=== PATIENT | male | born 1940 | race Caucasian/White ===

== ENCOUNTER 2017-10-25 10:35 | Outpatient (CLI) | payer OTHER, SELFPAY ==
--- NOTE | 2017-10-25 | DI.RAD.S_ITS ---
PROCEDURE: PAIN L/S FACET INJ/BLK 1ST [facility] COMPARISON: None. INDICATIONS: LUMBOSACRAL RADICULOPATHY FINDINGS: Bilateral L3-4 and L4-5 needle tip localization has been achieved, for medial branch block IMPRESSION: Successful bilateral L3-4 and L4-5 needle tip localization for bilateral branch block procedure. Dictated by: Marcel Crawford M.D. on 10/25/2017 at 13:36 Approved by: Marcel Crawford M.D. on 10/25/2017 at 13:47
[2017-10-25 11:00] VITALS: BP 156/112; PULSE 94; RESP 20; TEMP 36; O2SAT 97
[2017-10-25 11:24] VITALS: BP 144/99; PULSE 97; RESP 18; O2SAT 97
[2017-10-25] MEDS: MIDAZOLAM 5 MG/5 ML VIAL IV (11:25)
[2017-10-25 11:27] VITALS: BP 138/91; PULSE 97; RESP 18; O2SAT 97
[2017-10-25 11:30] VITALS: BP 139/93; PULSE 94; RESP 17; O2SAT 98
[2017-10-25 11:40] VITALS: BP 147/88; PULSE 99; RESP 18; O2SAT 99
--- NOTE | 2017-10-25 11:41 | P.PCN_ITS ---
Procedures Date/Time Date of procedure: 10/25/17 Time of procedure: 11:38 General Procedure description: POST OP DIAGNOSIS 1. FACET ARTHROPATHY PROCEDURES 1. BILATERAL L4 AND L5 MB BLOCKS PHYSICIAN: DO TOMAS Neri Abhishek is referred by for treatment of Bilateral Axial LBP. DESCRIPTION OF PROCEDURE Fluoroscopically guided, contrast-controlled bilateral L4 AND L5 medial branch blocks with 0.5cc of 0.5% Marcaine. Following denial of allergy and review of potential side effects and complications, including, but not necessarily limited to, infection, allergic reaction, local tissue breakdown, nerve injury, paralysis, stroke and possible , the patient indicated that the patient understood and agreed to proceed. An informed consent document was signed by the patient, witnessed by a nurse, and placed in the patient's chart. After review of previous anaesthesic history and IV conscious sedation the patient was deemed safe to proceed with todays procedure with IV conscious sedation as ASA class II designation. Safety time-out was performed to confirm patient ID, procedure to be performed and site of procedure. IV sedation was accomplished with a combination of 3mg of Versed was administered by the RN after DO order, titrated to patient comfort during the course of the procedure while the patient remained responsive to all verbal commands In the prone position, following sterile prep and drape of the lumbar region, the right L4 AND L5 anatomical location of the medial branch of the dorsal ramus was identified fluoroscopically. Subsequently an anesthetic skin wheal using 1% lidocaine solution was initiated at each of the anatomical spots. Subsequently then a 22-gauge 3.5-inch spinal needle was atraumatically introduced and advanced under fluoroscopic guidance at each of the corresponding sites at the right L4 AND L5 MB. After negative aspiration, 0.2 cc of Isovue 200 was injected, confirming placement without vascular or intrathecal uptake. Subsequently then 0.5 cc of 0.5% Marcaine solution was injected at each of the corresponding sites at the Right L4 AND L5 medial branch locations. The identical procedure was replicated on the left. The patient tolerated the procedure well without signs or symptoms of complications. Post-procedure, the patient was monitored initiating provocative activities to measure the amount of relief from block of the facetogenic pain. The patient reported a VAS of 7 prior to the procedure and a post-procedure VAS of 1. It has been a pleasure to assist in the diagnostic and therapeutic care of your patient. Total Fluoroscopy Time: 24.8 seconds Total Conscious Sedation Time: 24min POST OP INSTRUCTIONS The patient was provided with a Pain Log to complete over the next several hours and subsequent days prior to the patient's follow up with the ordering physician. If the patient has hand mexican food maker relief to the solution applied, then they may be a candidate for medial branch rhizotomy. The patient is aware , was provided, once again, with a Pain Log and will follow up with the referring physician for review and clinical correlation Ochoa Trejo DO Complications: none
[2017-10-25 11:45] VITALS: BP 147/88; PULSE 92; RESP 18; O2SAT 99
[2017-10-25] MEDS: LIDOCAINE 1% 20 ML INJ 10 ML INJ (11:46)
[2017-10-25] MEDS: IOPAMIDOL 15 ML VIAL 3 ML INJ (11:46)
[2017-10-25] MEDS: BUPIVACAINE 0.5% (PF) VIAL 5 ML INJ (11:46)
[2017-10-25] MEDS: BETAMETHASONE 30 MG/5 ML MDV 12 MG INJ (11:57)
== END 2017-10-25 12:05 ==
PROVIDERS: PCP Family Medicine; Visit Provider Physical Medicine & Rehabilitation
DX: M47.816 Spondylosis without myelopathy or radiculopathy, lumbar region (principal); Z98.1 Arthrodesis status
CPT/HCPCS: 64493; 99152; J0702; J2250

== ENCOUNTER 2018-02-28 10:10 | Outpatient (CLI) | payer OTHER, SELFPAY ==
[2018-02-28] VITALS (14 sets, daily range): BP systolic 132–175; BP diastolic 80–106; PULSE 71–83; RESP 16–20; TEMP 35.8; O2SAT 97–100
--- NOTE | 2018-02-28 10:15 | DI.RAD.S_ITS ---
PROCEDURE: PAIN L/S MED/LAT N RFA BILAT INDICATIONS: SPONDYLOSIS FINDINGS: Fluoroscopic spot filming was performed to verify placement of spinal needles at the L4 and L5 level(s), as labeled on the films. Appropriate location(s) of the needle tip(s) was confirmed by injection of iodinated contrast. Dictated by: Bhaskar Amaya M.D. on 02/28/2018 at 13:25 Approved by: Bhaskar Amaya M.D. on 02/28/2018 at 13:25
[2018-02-28] MEDS: MIDAZOLAM 5 MG/5 ML VIAL IV (11:03)
[2018-02-28] MEDS: LIDOCAINE 1% 20 ML INJ INJ (11:16)
[2018-02-28] MEDS: BUPIVACAINE 0.5% (PF) VIAL 5 ML INJ (11:21)
--- NOTE | 2018-02-28 11:50 | PC.NURSE ---
ASSISTING PT FROM TABLE AND TRANSPORTING TO POST PROC AREA IN STABLE CONDITION
--- NOTE | 2018-02-28 11:56 | P.PCN_ITS ---
Procedures Date/Time Date of procedure: 02/28/18 Time of procedure: 11:55 General Procedure description: PREOP DIAGNOSIS 1. RECALCITRANT FACET ARTHROPATHY, POST OP DIAGNOSIS 1. RECALCITRANT FACET ARTHROPATHY PROCEDURES 1. BILATERAL L4 AND L5 MEDIAL BRANCH RADIOFREQUENCY NEUROTOMY PHYSICIAN: Ochoa Trejo DO INDICATIONS: Abhishek is referred by Dr. Mccartney for treatment of facet arthropathy. DESCRIPTION OF PROCEDURE Bilateral L3, L4 and L5 medial branch radiofrequency neurotomy The patient is well known to this clinic having undergone previous facet injections with good but temporary relief. The patient has experienced appropriate, concordant relief with previous facet and median branch blocks but the patient's pain has been recalcitrant to further conservative measures. Therefore, based upon the patient's relief and persistent symptoms, the patient is considered an appropriate candidate for facet rhizotomy. All of the patient' s questions regarding the risks versus benefits of the procedure, including, but not limited to, bleeding, infection, temporary as well as lasting nerve injury, paralysis, stroke, and , as well treatment alternatives were answered to satisfaction. After obtaining informed consent, denial of pertinent drug allergies, as well as being made aware of the potential risks of bleeding, infection, spinal cord trauma, paralysis, temporary and permanent nerve damage, seizure, stroke, and possible , the patient was brought to the fluoroscopy suite and positioned prone on the fluoroscopy table. The lumbar region was prepped with Betadine and covered with a fenestrated drape in the usual sterile fashion. Appropriate monitors applied including pulse oximeter, pulse, and blood pressure for regular monitoring throughout the procedure. After review of previous anaesthesic history and IV conscious sedation the patient was deemed safe to proceed with todays procedure with IV conscious sedation as ASA class II designation. Safety time-out was performed to confirm patient ID, procedure to be performed and site of procedure. IV sedation was accomplished with a combination of 5mg of Versed administered by the RN after DO order, titrated to patient comfort during the course of the procedure while the patient remained responsive to all verbal commands. After local infiltration using 1% lidocaine, under fluoroscopic guidance, a 10- cm RF insulated needle with a 10-mm active tip was positioned parallel to the junction of the right the superior articulating process where the L5 medial branch resides. Needle placement was confirmed with sensory stimulation at 50 Hz, with motor stimulation of .5v on the right which produced local stimulation without radicular component. The stimulation was then increased to 1.5v with, once again, only local multifidus stimulation without radicular component. This was then followed by two discreet lesions performed at 80 degrees Celsius for 90 seconds each. The needle was then removed and the identical procedure was performed along the length of the right L4 medial branch with motor stimulation at .7v on the right. The identical procedures were repeated on the left. The patient tolerated the procedure well without signs or symptoms of complications prior to transfer to the recovery area continued monitoring without incident. The patient was then transferred to the recovery area where they were observed for an appropriate period of time after the injection. The patient reported a VAS score of 7 prior to the procedure and a post-procedure VAS of 1. Total Fluoroscopy Time: 22.7 seconds Total Conscious Sedation Time: 34min POST OP INSTRUCTIONS The patient was provided a Pain Log to continue to record the patient's response to the target-specific procedure prior to the patient's follow-up visit with the referring physician. Additionally, specific post-injection care instructions and a contact number to our office were provided if concerns arise regarding possible complications associated with the procedure are suspected. Ochoa Trejo, Complications: none
== END 2018-02-28 12:12 ==
LOC: RAD 10:11
PROVIDERS: PCP Family Medicine; Visit Provider Physical Medicine & Rehabilitation
DX: M47.817 Spondylosis without myelopathy or radiculopathy, lumbosacral region (principal); Z98.1 Arthrodesis status; M46.96 Unspecified inflammatory spondylopathy, lumbar region
CPT/HCPCS: 64635; 99152; J2250; J3010

== ENCOUNTER 2018-09-04 14:31 | Outpatient (CLI) | payer OTHER, SELFPAY ==
[2018-09-04] VITALS (7 sets, daily range): BP systolic 139–169; BP diastolic 82–103; PULSE 67–87; RESP 16–18; TEMP 36.1; O2SAT 95–97
--- NOTE | 2018-09-04 14:33 | DI.RAD.S_ITS ---
PROCEDURE: PAIN SI JOINT INJECTION INDICATIONS: SPONDYLOSIS FINDINGS: Fluoroscopic spot filming was performed to verify placement of spinal needles at the level(s), as labeled on the films. Appropriate location(s) of the needle tip(s) was confirmed by injection of iodinated contrast. IMPRESSION: Fluoroscopy for pain management. Dictated by: Raimundo Esquivel M.D. on 09/04/2018 at 17:05 Approved by: Raimundo Esquivel M.D. on 09/04/2018 at 17:05
[2018-09-04] MEDS: fentaNYL 100 MCG/2 ML INJ 50 MCG IV (15:27)
[2018-09-04] MEDS: MIDAZOLAM 5 MG/5 ML VIAL IV (15:27)
[2018-09-04] MEDS: BETAMETHASONE 30 MG/5 ML MDV 12 MG INJ (15:31)
[2018-09-04] MEDS: IOPAMIDOL 15 ML VIAL 3 ML INJ (15:31)
[2018-09-04] MEDS: BUPIVACAINE 0.5% (PF) VIAL 2 ML INJ (15:31)
--- NOTE | 2018-09-04 15:34 | PC.NURSE ---
ASSISTING PT OFF TABLE AND TRANSPORTING TO POST PROC AREA IN STABLE CONDITION
--- NOTE | 2018-09-04 15:42 | P.PCN_ITS ---
Procedures Date/Time Date of procedure: 09/04/18 Time of procedure: 15:41 General Procedure description: PREOP Dx: Sacroiliac joint pain/DJD POST OP DX: Sacroiliac Joint Pain/DJD Procedures: Fluoroscopic guided contrast controlled right sacroiliac joint injection Physician: Ochoa Trejo D.O. Indications: Abhishek is referred by for treatment of right sacroiliac joint DJD Description of procedure Fluoroscopic guided, contrast controlled right sacroiliac joint injection Following review of allergies and review of potential side effects and complications, including, but not necessarily limited to, infection, allergic r eaction, local tissue breakdown, temporary as well as permanent nerve injury, paralysis, stroke and possible , the patient indicated that they understood and agreed to proceed. An informed consent was signed by the patient, witnessed by a nurse, and placed in the patient's chart. Additionally, other treatment options including modalities, medications, and physical therapy were reviewed with the patient. After review of previous anaesthesic history and IV conscious sedation the patient was deemed safe to proceed with todays procedure with IV conscious sedation as ASA class II designation. Safety time-out was performed to confirm patient ID, procedure to be performed and site of procedure. IV sedation was accomplished with a combination of 2mg Versed and 50mcg of Fentanyl was adminis tered by the RN after DO order, titrated to patient comfort during the course of the procedure while the patient remained responsive to all verbal commands In the prone position following sterile prep and drape of the pelvic region, the hyper lucency on in the inferior aspect of the sacroiliac joint was identified fluoroscopically the skin was anesthetized be a 25 gauge 1 eventual with approximately 2 cc of 1% lidocaine solution. At this point, a 22 gauge 3 in spinal needle was atraumatically introduced and advanced under fluoroscopic guidance into the inferior aspect of the right sacroiliac joint. Following negative aspiration, approximately 0.3 cc of Isovue-300 was injected confirming intra-articular placement without vascular uptake. Radiographic data, including multiple fluoroscopic views of the pelvis, reveals a spinal needle in the sacroiliac joint hyper lucent zone. Subsequent view show flow contrast tear superiorly and inferiorly within the joint capsule without vascular intrathecal uptake. At this point a total of 1 cc or 0 8 of 0.5% Marcaine was combined with 1 cc of 6 mg of betamethasone was injected without incident. The procedure tolerated the procedure well without signs or symptoms of complications prior to transfer to the recovery area continued monitoring without incident. The patient was then transferred to the recovery area with a bur observed for an appropriate time after the injection. The patient reverted a vas score of 7 prior to the procedure and postprocedure vas of 1. Total fluoroscopy time: 22.7 sec Total conscious sedation time: 24 min Postop instructions The patient was provided with a pain like to continue to record the patient's response to the target specific procedure prior to the patient's follow-up visit with the referring physician. Additionally, specific post injection care instructions and a contact number to our office were provided if concerns arise regarding the possible complications associated with procedure are suspected. Ochoa Trejo D.O. Complications: none
--- NOTE | 2018-09-04 15:44 | PC.NURSE ---
Pt returned from post procedure awake and alert, able to move from W/C to chair on own power. Resumed monitoring from Mikala GUILLORY.
== END 2018-09-04 16:09 ==
PROVIDERS: PCP Family Medicine; Visit Provider Physical Medicine & Rehabilitation
DX: M53.3 Sacrococcygeal disorders, not elsewhere classified (principal); M47.818 Spondylosis without myelopathy or radiculopathy, sacral and sacrococcygeal region
CPT/HCPCS: 27096; 99152; J0702; J2250; J3010

== ENCOUNTER → 2019-10-07 09:21 | Outpatient (CLI) | payer OTHER, SELFPAY ==
[2019-10-08 09:37] LABS: COVID19 Sendout Not Detected (Not Detect)
== END ==
PROVIDERS: PCP Family Medicine; Visit Provider Student in an Organized Health Care Education/Training Program
DX: Z01.812 Encounter for preprocedural laboratory examination (principal)
CPT/HCPCS: 87635

== ENCOUNTER 2019-10-10 09:41 | Outpatient (CLI) | payer OTHER, SELFPAY ==
[2019-10-10] VITALS (9 sets, daily range): BP systolic 120–166; BP diastolic 79–129; PULSE 56–72; RESP 14–16; TEMP 36; O2SAT 96–99
--- NOTE | 2019-10-10 09:44 | DI.RAD.S_ITS ---
PROCEDURE: PAIN SI JOINT INJECTION [facility] COMPARISON: None. INDICATIONS: SACROCOCCYGEAL DISORDER FINDINGS: There is a needle tip localized into the inferior 3rd of the right sacroiliac joint, for SI joint steroid injection. IMPRESSION: Successful right inferior sacroiliac joint needle tip localization for steroid injection into this region. Dictated by: Marcel Crawford M.D. on 10/10/2019 at 13:54 Approved by: Marcel Crawford M.D. on 10/10/2019 at 13:54
[2019-10-10] MEDS: MIDAZOLAM 5 MG/5 ML VIAL IV (10:27)
[2019-10-10] MEDS: fentaNYL 100 MCG/2 ML INJ 50 MCG IV (10:27)
[2019-10-10] MEDS: BUPIVACAINE 0.5% (PF) VIAL 2 ML INJ (10:32)
[2019-10-10] MEDS: IOPAMIDOL 15 ML VIAL 3 ML INJ (10:32)
[2019-10-10] MEDS: BETAMETHASONE 30 MG/5 ML MDV 12 MG INJ (10:33)
--- NOTE | 2019-10-10 10:51 | PM.PROC.IR.1 ---
Date/Time/Diagnoses Date of procedure: 10/10/19 Time of procedure: 10:52 Pre-procedure diagnosis: Sacroiliac joint pain/DJD Post-procedure diagnosis: same Procedure Notes Procedure: Fluoroscopic guided contrast controlled bilateral sacroiliac joint injection Indications: Abhishek is referred by for treatment of bilateral sacroiliac joint DJD Physician: Ochoa Trejo Total Fluoroscopy time (seconds): 8 Total sedation minutes: 24 Complications: none Procedure in detail & Post-procedure care: Description of procedure Fluoroscopic guided, contrast controlled bilateral sacroiliac joint injection Following review of allergies and review of potential side effects and complications, including, but not necessarily limited to, infection, allergic reaction, local tissue breakdown, temporary as well as permanent nerve injury, paralysis, stroke and possible , the patient indicated that they understood and agreed to proceed. An informed consent was signed by the patient, witnessed by a nurse, and placed in the patient's chart. Additionally, other treatment options including modalities, medications, and physical therapy were reviewed with the patient. After review of previous anaesthesic history and IV conscious sedation the patient was deemed safe to proceed with today?s procedure with IV conscious sedation as ASA class II designation. Safety time-out was performed to confirm patient ID, procedure to be performed and site of procedure. IV sedation was accomplished with a combination of 2mg Versed and 50mcg of Fentanyl were administered by the RN after DO order, titrated to patient comfort during the course of the procedure while the patient remained responsive to all verbal commands In the prone position following sterile prep and drape of the pelvic region, the hyper lucency on in the inferior aspect of the sacroiliac joint was identified fluoroscopically the skin was anesthetized be a 25 gauge 1.5 with approximately 2cc of 1% lidocaine solution. At this point, a 22 gauge 2.5 in spinal needle was atraumatically introduced and advanced under fluoroscopic guidance into the inferior aspect of the right sacroiliac joint. Following negative aspiration, approximately 0.3cc of Isovue-300 was injected confirming intra-articular placement without vascular uptake. Radiographic data, including multiple fluoroscopic views of the pelvis, reveals a spinal needle in the sacroiliac joint hyper lucent zone. Subsequent view show flow contrast tear superiorly and inferiorly within the joint capsule without vascular intrathecal uptake. At this point a total of 1cc of 0.5% Marcaine was combined with 1cc of 6mg of betamethasone was injected without incident. Attention was then refocused the left sacroiliac joint where the procedure was replicated. The procedure tolerated the procedure well without signs or symptoms of complications prior to transfer to the recovery area continued monitoring without incident. The patient was then transferred to the recovery area with a bur observed for an appropriate time after the injection. The patient reverted a vas score of 7 prior to the procedure and post-procedure vas of 1. Postop instructions The patient was provided with a pain like to continue to record the patient's response to the target specific procedure prior to the patient's follow-up visit with the referring physician. Additionally, specific post injection care instructions and a contact number to our office were provided if concerns arise regarding the possible complications associated with procedure are suspected.
--- NOTE | 2019-10-10 11:58 | PC.NURSE ---
1045: pt returned to pre proc room by , slightly impulsive but stable transfer from wc to chair. monitoring resumed
--- NOTE | 2019-10-10 15:45 | PC.NURSE ---
Tolerated procedure without incident. VSS upon transfer to post procedure room to PASTORA Camargo. Versed and Fentanyl administered by Mercedes Bhakta. All other meds given by Dr. Trejo.
--- NOTE | 2019-10-10 17:51 | PC.NURSE ---
Called pt to let him know that he inadvertently left without his pain log. I offered to mail it to him but he declined. He said he would write his daily pain score on a sheet of paper and discuss it with Dr Trejo on 10/21 telehealth appt.
== END 2019-10-10 11:10 | disposition home or self-care (01) ==
LOC: RAD 09:43
PROVIDERS: PCP Family Medicine; Referring Provider Family Medicine; Visit Provider Physical Medicine & Rehabilitation
DX: M53.3 Sacrococcygeal disorders, not elsewhere classified (principal); M47.898 Other spondylosis, sacral and sacrococcygeal region
CPT/HCPCS: 27096; 99152; J0702; J2250; J3010

== ENCOUNTER → 2023-12-25 09:12 | Outpatient (CLI) | payer MEDICARE, SELFPAY ==
--- NOTE | 2023-12-25 09:13 | DI.RAD.S_ITS ---
PROCEDURE: XR HIP W PEL IF DONE JH MIN 4V INDICATIONS: LEFT HIP PAIN TECHNIQUE: AP pelvis with lateral view(s) of the both hip(s). COMPARISON: None. FINDINGS: Bones: No fractures or dislocations. Pelvic ring appears intact. No suspicious bony lesions. L5-S1 pedicle screw fixation. Soft tissues: The visualized bowel gas pattern is normal. No suspicious soft tissue calcifications. IMPRESSION: Moderate bilateral hip DJD. Dictated by: Grant Luz M.D. on 12/25/2023 at 10:21 Approved by: Grant Luz M.D. on 12/25/2023 at 10:24
--- NOTE | 2023-12-25 09:13 | DI.RAD.S_ITS ---
PROCEDURE: XR LUMBAR SPINE MIN 4V INDICATIONS: BACK PAIN TECHNIQUE: 5 views of the lumbar spine were acquired, including bilateral oblique views. COMPARISON: [facility], CT, CT KUB, 10/15/2018, 7:29. FINDINGS: Bones: L4-L5 pedicle screw fixation. Artificial disc at L4-L5. 5 nonrib-bearing vertebrae are present. Disc space height loss most pronounced at L3-L4 and L5-S1. There is normal bony alignment. No vertebral body compression fractures. No suspicious bony lesions. Soft tissues: Overlying bowel gas pattern is normal. No suspicious soft tissue calcifications. Clips in the upper abdomen. Oblique images: No pars defects. IMPRESSION: Worsening disc space height loss at L3-L4 compared to 2019. Dictated by: Grant Luz M.D. on 12/25/2023 at 10:49 Approved by: Grant Luz M.D. on 12/25/2023 at 10:53
== END ==
PROVIDERS: PCP Family Medicine; Referring Provider Physical Medicine & Rehabilitation; Visit Provider Physical Medicine & Rehabilitation
DX: M16.0 Bilateral primary osteoarthritis of hip (principal); M25.552 Pain in left hip; M47.817 Spondylosis without myelopathy or radiculopathy, lumbosacral region; M46.96 Unspecified inflammatory spondylopathy, lumbar region; Z98.1 Arthrodesis status
CPT/HCPCS: 72110; 73522